=== PATIENT | female | born 1965 | race Caucasian/White ===

== ENCOUNTER 2020-02-29 05:40 | Day surgery (SDC) | payer OTHER ==
[~2020-02-29] VITALS: Ht 157.5 cm; Wt 77.3 kg
[~2020-02-29 05:40] MED LIST: ARMOUR THYROID90 MG PO; CYCLOBENZAPRINE10 MG PO; DOTTI1 EAC2 TD; LIDOPIN28 GM TP
[2020-02-29] MEDS ORDERED: GINKGO BILOBA120 MG PO (06:11)
[2020-02-29] MEDS ORDERED: BIOTIN2500 MCG PO (06:11)
[2020-02-29] MEDS ORDERED: HYDROCHLOROTH12.5 MG PO (06:11)
[2020-02-29] MEDS ORDERED: VITAMIN C1000 MG PO (06:12)
[2020-02-29] MEDS ORDERED: VITAMIN E100 UNI1 PO (06:12)
[2020-02-29] MEDS ORDERED: FISH OIL 1,0001 EAC5 PO (06:13)
[2020-02-29] MEDS ORDERED: GLUCOSAMINE-CH1 EA48 PO (06:13)
[2020-02-29] MEDS ORDERED: FOLIXAPURE5000 UNIT PO (06:14)
[2020-02-29] MEDS ORDERED: VITAMIN D3125 MC2 PO (06:15)
[2020-02-29] MEDS ORDERED: CEPHALEXIN500 M1 PO (06:16)
[2020-02-29] MEDS ORDERED: PERCOCET 5-3251 EACH PO (06:16)
[2020-02-29] MEDS ORDERED: TURMERIC500 M2 PO (06:16)
--- NOTE | 2020-02-29 10:35 | NUR ---
02[facility]29/20 1035 [facility] IN PACU WIDE AWAKE AND TRYING TO CLIMB OUT OF BED. REORIENTED PT. L FOOT ELEVATED ON PILLOWS AND ICE TO ANKLE. 0945 3 VIEW XRAY OF L FOOT DONE. PT ALERT WITH NO C/O'S. 1000 SITTING AT SIDE OF BED SIPPING ON WATER. 1020 DC INSTRUCTIONS GIVEN. BOOT PLACED ON L FOOT. LEFT VIA W/C.
--- NOTE | 2020-03-01 11:26 | OR ---
[facility] [address], [place] [address] Signed DATE OF OPERATION: 02/29/2020 SURGEON: Zhang Lawrence DPM PREOPERATIVE DIAGNOSIS: Hallux valgus, left foot. POSTOPERATIVE DIAGNOSIS: Hallux valgus, left foot. INDUSTRIAL SAFETY AND HEALTH SPECIALIST: Viktor Izaguirre DPM ANESTHESIA: Regional block left lower extremity with IV general. INTAKE ASSESSOR: Riki Gonzalez. SPECIMEN TO PATHOLOGY: None. PROCEDURE PERFORMED: Lapidus type bunionectomy, left foot. PROCEDURE IN DETAIL: The patient was brought to the operating room and placed on the table in the supine position. Anesthesia Department administered regional block prior to the patient entering the room, then IV sedation was administered. The left leg and foot were then prepped and draped in the usual sterile manner and an Esmarch was used for hemostasis. Attention was directed to the dorsal medial aspect of the left 1st MPJ where a linear longitudinal incision was made centered over the 1st MPJ approximately 1 cm medial to the extensor hallucis longus tendon. The incision was initially full-thickness through the dermis and about 6-8 cm in length. The incision was deepened through subcutaneous tissue using careful dissection and cautery as necessary for hemostasis. Once at the level of deep fascia and joint capsule, an incision was made to open the joint reflecting soft tissues medially to expose the bony prominence at the medial 1st metatarsal head. The bony prominence was then resected using power instrumentation, removing 2-3 mm of bone. Attention was then directed to the 1st intermetatarsal space Electronically Signed By: ZHANG LAWRENCE DPM 03/01/20 1126 PATIENT NAME: SHARRI PATEL OPERATIVE REPORT DATE OF : 67 REPORT #: [id number] PHYSICIAN: ZHANG LAWRENCE DPM PCP: MARIBELL LEE REPORT IS CONFIDENTIAL AND NOT TO BE RELEASED WITHOUT AUTHORIZATION [facility] [address], [place] [address] Signed where a lateral release was performed. At this time, attention was directed proximal to the 1st metatarsal-cuneiform joint. The incision was extended to this level and soft tissues were reflected using careful dissection and cautery as necessary for hemostasis. Once the joint was exposed and identified, the joint was opened at the 1st metatarsal-cuneiform location. A joint distractor was then used to hold the joint open for prep of the joint for fusion. Power and hand instrumentation was used to remodel the joint and remove cartilage from the joint surfaces. The joint surfaces were then fenestrated with a K-wire and the 1st metatarsal then positioned and stabilized with K-wires temporarily. The alignment and position checked with intraoperative C-arm images. With the confirmation of good positioning, the locking plate was then placed medially over the 1st metatarsal-cuneiform joint. At this time, the surgical site was irrigated with copious amounts of normal saline. Deep closure was then performed using 3-0 Vicryl and subcutaneous closure performed using 4-0 Vicryl. Skin closed using skin wero. Dressings were applied using Adaptic, Betadine-soaked gauze, dry gauze, Kerlix fluffs, Flexicon, and Coban. The dressings were used to splint the position to the hallux. Prior to placement of the dressings, a postoperative injection was given using a total of 10 mL 9:1 mixture, 0.5% ropivacaine plain and dexamethasone phosphate 4 mg/mL. The patient tolerated the procedure and the anesthesia well and left the operating room with vital signs stable and vascular status intact to the left foot as evidenced by hyperemia with removal of the Esmarch. INTRAOPERATIVE COMPLICATIONS: None. ESTIMATED BLOOD LOSS: Less than 5 mL. Zhang Lawrence DPM DFB/MODL /[id number] Electronically Signed By: ZHANG LAWRENCE DPM 03/01/20 1126 PATIENT NAME: SHARRI PATEL OPERATIVE REPORT DATE OF : 67 REPORT #: [id number] PHYSICIAN: ZHANG LAWRENCE DPM PCP: MARIBELL LEE REPORT IS CONFIDENTIAL AND NOT TO BE RELEASED WITHOUT AUTHORIZATION [address] [place], [place] [address] Signed Copies: ~ Electronically Signed By: ZHANG LAWRENCE DPM 03/01/20 1126 PATIENT NAME: SHARRI PATEL OPERATIVE REPORT DATE OF : 67 REPORT #: [id number] PHYSICIAN: ZHANG LAWRENCE DPM PCP: MARIBELL LEE REPORT IS CONFIDENTIAL AND NOT TO BE RELEASED WITHOUT AUTHORIZATION
== END 2020-02-29 10:20 | disposition home or self-care (01) ==
LOC: DS 05:40 → OPS 05:40 → DS 06:45 → OPS 10:20
PROVIDERS: ATTEND Podiatrist Foot Surgery
PROC: 0SGL04Z Fusion of Left Tarsometatarsal Joint with Internal Fixation Device, Open Approach (ICD-10-PCS; principal; 2020-02-29 06:45)
DX: M20.12 Hallux valgus (acquired), left foot (principal); M20.11 Hallux valgus (acquired), right foot; M21.611 Bunion of right foot; M21.612 Bunion of left foot; G89.18 Other acute postprocedural pain; E03.9 Hypothyroidism, unspecified; Z88.5 Allergy status to narcotic agent; Z88.2 Allergy status to sulfonamides; Z91.040 Latex allergy status; Z91.010 Allergy to peanuts
CPT/HCPCS: 01480; 64445; 64447; 73620; 73630; 76942; C1713; C1769; J0690; J1100; J2250; J2704; J2795; J7121

== ENCOUNTER 2023-07-13 06:25 | Day surgery (SDC) | payer OTHER ==
[~2023-07-13] VITALS: Ht 157.5 cm; Wt 70.5 kg
[~2023-07-13 06:25] MED LIST changes: +BIOTIN2500 MCG PO; +CEPHALEXIN500 M1 PO; +FISH OIL 1,0001 EAC5 PO; +FOLIXAPURE5000 UNIT PO; +GINKGO BILOBA120 MG PO; +GLUCOSAMINE-CH1 EA48 PO; +HYDROCHLOROTH12.5 MG PO; +MIDAZOLAM HCL 5 MG/5 ML VIAL IV PRN; +PERCOCET 5-3251 EACH PO; +TURMERIC500 M2 PO; +VITAMIN C1000 MG PO; +VITAMIN D3125 MC2 PO; +VITAMIN E100 UNI1 PO; +fentaNYL citrate 100 MCG/2 ML VIAL IV PRN
[2023-07-13 06:43] VITALS: BP 107/65
[2023-07-13] MEDS ORDERED: fentaNYL citrate 100 MCG/2 ML VIAL ONE (06:47)
[2023-07-13] MEDS ORDERED: MIDAZOLAM HCL 5 MG/5 ML VIAL ONE (06:47)
[2023-07-13] MEDS ORDERED: LEVOTHYROXINE88 MC1 PO (06:47)
[2023-07-13] MEDS ORDERED: VITAMIN C500 M1 PO (06:48)
[2023-07-13] MEDS ORDERED: VITAMIN B COMP1 EACH PO (06:48)
[2023-07-13] MEDS ORDERED: MELATONIN10 MG PO (06:50)
[2023-07-13] MEDS ORDERED: MILK THISTLE150 MG PO (06:50)
[2023-07-13] MEDS ORDERED: CO Q-10100 MG PO (06:51)
[2023-07-13] MEDS ORDERED: BIOTIN5 M1 PO (06:51)
[2023-07-13] MEDS ORDERED: LIOTHYRONINE SO5 MCG PO (06:52)
[2023-07-13] MEDS ORDERED: LACTATED RINGER'S 1,000 ML IV SCH (07:00)
[2023-07-13] MEDS ORDERED: IBLOOD GLUCOSE TEST STRIP 1 EA TEST VI PRN (07:00)
[2023-07-13] MEDS ORDERED: LIDOCAINE HCL 1% 5 ML SDV INJ ONE (07:00)
[2023-07-13 08:35] VITALS: BP 104/63
--- NOTE | 2023-07-13 08:44 | NUR ---
07/13/23 0844 Zaida Welch 0800 PT ARRIVED IN PACU SLEEPY WITH NO C/O'S. ABD SOFT. 0815 AT BEDSIDE. ALL QUESTIONS ANSWERED. SITTING UP IN BED SIPPING ON COFFEE. 0825 DC INSTRUCTIONS GIVEN. 0837 LEFT VIA W/C.
--- NOTE | 2023-07-14 21:46 | OR ---
[facility] [address], [place] [address] Signed DATE OF OPERATION: 07/13/2023 SURGEON: Kristal Solis MD PREOPERATIVE DIAGNOSIS: Colon screening. POSTOPERATIVE DIAGNOSIS: Mucosal lesion left colon, possible polyp (excised). PROCEDURE: Total colonoscopy to cecum with cold morcellation polypectomy x1. ANESTHESIA: Intravenous sedation; fentanyl 100 mcg and Versed 5 mg. INDICATION: This 57-year-old white woman is a patient of Dr. Rebecca Madrigal. She is referred for colon screening. She has no family history of colon cancer and no symptoms of bleeding, diarrhea or constipation. She understands the risk of colonoscopy including but not limited to bleeding, infection, and anesthetic complications and wished to proceed. FINDINGS: The prep was quite good. Complete colonoscopy was undertaken of the cecum with full intubation of the cecum. There was one mucosal lesion that was linear and may or may not have been actually an adenoma. It was excised with cold morcellation technique. The remaining colon and rectum was normal. DESCRIPTION OF PROCEDURE: The patient was brought to the endoscopy suite and placed in the lateral decubitus position, given intravenous sedation to the point of slurred speech and nystagmus with full cardiopulmonary monitoring. An Olympus video colonoscope was passed in the rectum and manipulated throughout the colon ultimately intubating the cecum itself. The ileocecal valve and appendiceal orifice were normal. The scope was withdrawn from that point and careful inspection upon withdrawal of the scope showed no sign of abnormality into the proximal descending colon where a linear lesion was noted. It was not malignant in appearance. Narrow-band imaging confirmed it possibly to be an adenomatous polyp that was excised with cold morcellation technique with several bites. Scope was further withdrawn and remaining Electronically Signed By: KRISTAL SOLIS MD 07/14/23 2146 PATIENT NAME: SHARRI PATEL OPERATIVE REPORT DATE OF : 67 REPORT #: [id number] PHYSICIAN: KRISTAL SOLIS MD PCP: REBECCA MADRIGAL MD REPORT IS CONFIDENTIAL AND NOT TO BE RELEASED WITHOUT AUTHORIZATION [facility] [address] [place], [place] [address] Signed colon appeared normal. Retroflexed view of the rectum was normal. The scope was removed and the patient was taken to the recovery room in good condition. CONCLUDING DIAGNOSIS: Possible polyp of left colon (excised). PLAN: If the lesion proves to be an adenoma, would repeat colonoscopy in three years; if it is not, would repeat in 10 years or sooner if symptoms should occur. She will return to the ongoing care of Dr. Rebecca Madrigal. MD JASBIR Pierce/CORIEL /[id number] cc: Dr. Rebecca Madrigal Copies: ~ Electronically Signed By: KRISTAL SOLIS MD 07/14/23 2146 PATIENT NAME: SHARRI PATEL OPERATIVE REPORT DATE OF : 67 REPORT #: [id number] PHYSICIAN: KRISTAL SOLIS MD PCP: REBECCA MADRIGAL MD REPORT IS CONFIDENTIAL AND NOT TO BE RELEASED WITHOUT AUTHORIZATION
--- NOTE | 2023-07-15 15:54 | PATH ---
[facility] [place] [facility] [address] [place], [place] [address] Signed SPECIMEN(S): A DESCENDING/LEFT COLON POLYP SPECIMEN SOURCE: A. DESCENDING/LEFT COLON POLYP CLINICAL HISTORY: Colonoscopy FINAL PATHOLOGIC DIAGNOSIS: Colon, descending/left, polypectomy: - Hyperplastic polyp BRP MICROSCOPIC EXAMINATION: Histologic sections of all submitted blocks are examined by light microscopy. These findings, together with the gross examination, support the pathologic diagnosis. GROSS DESCRIPTION: The specimen, labeled and designated "Alverto, descending/left colon polyp, left colon mucosal lesion," is received in formalin and consists of three thurman soft tissue fragments, ranging from 0.2-0.3 cm. Entirely submitted in (A1). VB (under the direct supervision of a pathologist) The Gross Description was prepared using a voice recognition system. The report was reviewed for accuracy; however, sound-alike word errors, addition and/or deletions may occur. If there is any question about this report, please contact Client Services. ADDITIONAL NOTES: Immunohistochemical and/or in situ hybridization studies if performed in this case included appropriate positive controls that reacted as expected. This test was developed and its performance characteristics determined by [facility]. It has not been cleared or approved by the U.S. Food and Drug Administration. The FDA has determined that such clearance or approval is not necessary. This test is used for clinical purposes. It should not be regarded as investigational or for research. [facility] is certified under the Clinical Laboratory Improvement Amendments of 1988 (CLIA) as qualified to perform high complexity clinical laboratory testing. PATIENT NAME: SHARRI PATEL PATHOLOGY DATE OF : 67 REPORT #: [id number] PHYSICIAN: JULIA AMAYA PCP: NHI MADRIGAL MD REPORT IS CONFIDENTIAL AND NOT TO BE RELEASED WITHOUT AUTHORIZATION [facility] [place] [facility] [address] [facility] [place] [address] Signed PERFORMING LABORATORY: Technical component was performed by [facility], [address] [place] [address] (CLIA# [id number]). [facility] [address] [address] [id number] Diagnostician: Franc Hodge MD Pathologist Electronically Signed 07/15/2023 Copies: ~ PATIENT NAME: SHARRI PATEL PATHOLOGY DATE OF : 67 REPORT #: [id number] PHYSICIAN: JULIA AMAYA PCP: NHI MADRIGAL MD REPORT IS CONFIDENTIAL AND NOT TO BE RELEASED WITHOUT AUTHORIZATION
== END 2023-07-13 08:37 | disposition home or self-care (01) ==
LOC: OPS 06:25 → DS 06:25 → OPS 07:30 → DS 07:30 → OPS 08:37
PROVIDERS: ATTEND Surgery
PROC: 0DBG8ZZ Excision of Left Large Intestine, Via Natural or Artificial Opening Endoscopic (ICD-10-PCS; principal; 2023-07-13 07:30)
DX: Z12.11 Encounter for screening for malignant neoplasm of colon (principal); K63.5 Polyp of colon; E03.9 Hypothyroidism, unspecified; Z78.0 Asymptomatic menopausal state
CPT/HCPCS: 99153; G0500; J2250; J3010